=== PATIENT | male | born 1990 | race African-American/Black ===

== ENCOUNTER → 2019-05-24 | Outpatient (CLI) | payer OTHER ==
[~2019-05-24] MED LIST: ALBU6.7H INH; LANS15CA60 PO; MOME17SP NAS; SUCR1TAB PO
== END | disposition home or self-care (01) ==
LOC: CFH 07:24
PROVIDERS: ATTEND Family Medicine
DX: R10.13 Epigastric pain (principal)
CPT/HCPCS: 76700